=== PATIENT | female | born 2000 | race Hispanic/Latino ===

== ENCOUNTER 2022-08-20 05:22 | Emergency (ER) | payer BC ==
[~2022-08-20] VITALS: Ht 167.6 cm; Wt 119.3 kg
[2022-08-20 05:25] VITALS: BP 134/82
[2022-08-20 08:19] LABS: APPEARANCE,URINE CLOUDY (CLEAR); BILIRUBIN,URINE NEGATIVE (NEGATIVE); COLOR,URINE LIGHT-YELLOW (YELLOW); GLUCOSE, URINE (UA) NEGATIVE (NEGATIVE); KETONES,URINE NEGATIVE (NEGATIVE); LEUKOCYTE ESTERASE ,URINE 25 Leu/uL (NEGATIVE); NITRATE,URINE NEGATIVE (NEGATIVE); OCCULT BLOOD,URINE NEGATIVE (NEGATIVE); PH,URINE 5.5 (5.0-8.0); PROTEIN,URINE NEGATIVE (NEGATIVE); UROBILINOGEN,URINE 0.2 mg/dL (0.2-1.0)
[2022-08-20 08:20] LABS: BACTERIA,URINE RARE /HPF (None Seen); MUCUS,URINE RARE LPF (None Seen); SQUAMOUS EPITHELIAL CELL,UR FEW /HPF (0-2)
[2022-08-20 08:26] LABS: HCG,QUALITATIVE URINE NEGATIVE (NEGATIVE)
[2022-08-20] MEDS ORDERED: IBUPROFEN 600 MG TABLET ONE (09:55)
[2022-08-20] MEDS ORDERED: IBUPROFEN 600 MG TABLET PO ONE (10:00)
[2022-08-20] MEDS ORDERED: AMOX1TAB16 PO (10:34)
== END 2022-08-20 10:46 | disposition home or self-care (01) ==
LOC: EDH 05:22
DX: H66.92 Otitis media, unspecified, left ear (principal)
CPT/HCPCS: 70486; 81001; 81025